=== PATIENT | female | born 1945 | race Caucasian/White ===

== ENCOUNTER 2024-05-23 19:55 | Inpatient (IN) | payer MEDICARE ==
[~2024-05-23] VITALS: Ht 165.1 cm; Wt 74.8 kg
[2024-05-23 20:30] VITALS: BP_SYST 131; PULSE 84; RESP 18; TEMP 101.1; O2SAT 96
[2024-05-23 20:58] LABS: BASOPHILS # (AUTO) 0.1 K/uL (0.0-0.2); BASOPHILS % (AUTO) 0.5 % (0.0-2.0); EOSINOPHILS # (AUTO) 0.1 K/uL (0.0-0.4); EOSINOPHILS % (AUTO) 0.4 % (0.0-4.0); HEMATOCRIT 41.9 % (36-48); HEMOGLOBIN 14.1 g/dL (12.0-16.0); LYMPHOCYTES % (AUTO) 5.7 % (20.5-51.5); MEAN CORPUSCULAR HEMOGLOBIN 32 pg (27-31); MEAN CORPUSCULAR HGB CONC 34 % (32-36); MEAN CORPUSCULAR VOLUME 94 fL (79.0-98.0); MONOCYTES # (AUTO) 1.1 K/uL (0.0-1.0); MONOCYTES % (AUTO) 5.7 % (1.7-9.3); NEUTROPHILS # (AUTO) 16.3 K/uL (1.8-7.7); NEUTROPHILS % (AUTO) 87.7 % (40.0-70.0); PLATELET COUNT (AUTO) 305 K/uL (130-430); RED BLOOD CELL COUNT(AUTO) 4.46 MIL/uL (4.2-6.2); RED CELL DISTRIBUTION WIDTH 12.7 % (9.0-15.0); WHITE BLOOD COUNT (AUTO) 18.5 K/uL (4.8-10.8)
[2024-05-23 21:32] LABS: ALANINE AMINOTRANSFERASE 27 U/L (12-78); ALBUMIN 4.4 g/dL (3.4-4.8); ANION GAP 13 (5-15); ASPARTATE AMINOTRANSFERASE 25 U/L (10-37); CALCIUM 9.9 mg/dL (8.4-11.0); CARBON DIOXIDE 24 mmol/L (23-29); CHLORIDE 102 mmol/L (98-107); CREATININE 1.12 mg/dL (0.55-1.30); GLUCOSE 119 mg/dL (74-106); LIPASE 17 U/L (16-77); POTASSIUM 4.6 mmol/L (3.5-5.1); SODIUM SERUM 139 mmol/L (136-145); TOTAL BILIRUBIN 0.8 mg/dL (0.0-1.0); TOTAL PROTEIN, SERUM 8.1 g/dL (6.4-8.3); UREA NITROGEN, BLOOD 16 mg/dL (8-21)
[2024-05-24] VITALS (8 sets, daily range): BP systolic 105–132; PULSE 84–94; RESP 16–20; TEMP 98.1–98.6; O2SAT 95–97
[2024-05-24] MEDS: NACL 0.9% 1,000 ML IV ONE (00:26)
[2024-05-24] MEDS ORDERED: CEFEPIME 2 GM/VIAL (MAXIPIME) ONE (01:24)
[2024-05-24] MEDS: CEFEPIME 2 GM in D5W 100 ML IV ONE (01:47)
[2024-05-24] MEDS ORDERED: ACETAMINOPHEN 325 MG TABLET PO PRN ×2 (02:15→07:45)
[2024-05-24] MEDS: MORPHINE 2 MG/ML INJ. SYRINGE IVP PRN ×2 (03:08→05:23)
[2024-05-24] MEDS ORDERED: SYN50 PO (03:54)
[2024-05-24] MEDS ORDERED: ATOR-449 PO (03:54)
[2024-05-24] MEDS ORDERED: PARNATE PO (03:54)
[2024-05-24 04:36] LABS: BILIRUBIN,URINE NEGATIVE (NEGATIVE); BLOOD, URINE 1+ (NEGATIVE); COLOR,URINE YELLOW (YELLOW); GLUCOSE,URINE NEGATIVE (NEGATIVE); KETONES,URINE NEGATIVE (NEGATIVE); LEUKOCYTE ESTERASE ,URINE NEGATIVE (NEGATIVE); NITRITE, URINE NEGATIVE (NEGATIVE); PROTEIN URINE NEGATIVE (NEGATIVE); UROBILINOGEN,URINE 0.2 (0.2-1.0)
[2024-05-24 04:57] LABS: CLARITY/URINE HAZY (CLEAR); WBC,URINE 0-3 /HPF (0-3)
[2024-05-24 04:58] LABS: BACTERIA,URINE RARE /HPF (None Seen)
[2024-05-24] MEDS: D5NS 1,000 ML IV ONE (05:10)
[2024-05-24] MEDS ORDERED: LORazepam 2 MG/ML VIAL IVP PRN (07:45)
[2024-05-24 08:20] LABS: BASOPHILS % (AUTO) 0.2 % (0.0-2.0); EOSINOPHILS % (AUTO) 0.1 % (0.0-4.0); HEMATOCRIT 37.5 % (36-48); HEMOGLOBIN 12.4 g/dL (12.0-16.0); LYMPHOCYTES # (AUTO) 1.2 K/uL (1.0-5.5); LYMPHOCYTES % (AUTO) 6.9 % (20.5-51.5); MEAN CORPUSCULAR HEMOGLOBIN 31 pg (27-31); MEAN CORPUSCULAR HGB CONC 33 % (32-36); MEAN CORPUSCULAR VOLUME 95 fL (79.0-98.0); MONOCYTES # (AUTO) 1.2 K/uL (0.0-1.0); MONOCYTES % (AUTO) 6.4 % (1.7-9.3); NEUTROPHILS # (AUTO) 15.5 K/uL (1.8-7.7); NEUTROPHILS % (AUTO) 86.4 % (40.0-70.0); PLATELET COUNT (AUTO) 235 K/uL (130-430); RED BLOOD CELL COUNT(AUTO) 3.97 MIL/uL (4.2-6.2); RED CELL DISTRIBUTION WIDTH 13.3 % (9.0-15.0)
[2024-05-24 08:27] LABS: ALANINE AMINOTRANSFERASE 20 U/L (12-78); ALBUMIN 3.3 g/dL (3.4-4.8); ANION GAP 11 (5-15); ASPARTATE AMINOTRANSFERASE 16 U/L (10-37); CALCIUM 8.4 mg/dL (8.4-11.0); CARBON DIOXIDE 23 mmol/L (23-29); CHLORIDE 104 mmol/L (98-107); GLUCOSE 106 mg/dL (74-106); POTASSIUM 3.7 mmol/L (3.5-5.1); SODIUM SERUM 138 mmol/L (136-145); TOTAL BILIRUBIN 0.8 mg/dL (0.0-1.0); TOTAL PROTEIN, SERUM 6.6 g/dL (6.4-8.3); UREA NITROGEN, BLOOD 13 mg/dL (8-21)
[2024-05-24] MEDS: PIPERACILLIN/TAZO 3.375 GM in D5W 50 ML IV ONE (09:00)
[2024-05-24] MEDS: ONDANSETRON HCL 4 MG/2 ML VIAL IVP PRN (09:25)
[2024-05-24] MEDS: BUPIVACAINE LIPOSOME/PF 266 MG/20 ML VIAL INFIL ONE (12:54)
[2024-05-24] MEDS ORDERED: LIDOCAINE MPF 2% 5mL VIAL INJ ONE (14:25)
[2024-05-24] MEDS ORDERED: ROCURONIUM BROMIDE 10 MG/ML (ZEMURON) ONE (14:25)
[2024-05-24] MEDS ORDERED: NS IRRIG SOLN 1000 ML IR ONE (14:25)
[2024-05-24] MEDS ORDERED: NS 1000 ML IV.SOLN IV ONE (14:25)
[2024-05-24] MEDS ORDERED: PROPOFOL 200MG/ 20ML VIAL (DIPRIVAN) IV ONE (14:25)
[2024-05-24] MEDS ORDERED: WATER FOR IRRIGATION,STERILE 1,000 ML IRRIG.SOLN IR ONE (14:25)
[2024-05-24] MEDS ORDERED: GLYCOPYRROLATE 0.2 MG/ML VIAL ONE (14:25)
[2024-05-24] MEDS ORDERED: SEVOFLURANE 15 MIN GAS INH ONE (14:25)
[2024-05-24] MEDS ORDERED: fentaNYL CITRATE/PF 100 MCG/2 ML AMP ONE (14:25)
[2024-05-24] MEDS: NACL 0.9% 1,000 ML IV SCH (17:00)
[2024-05-24] MEDS: ALBUMIN HUMAN 5% 250 ML IV ONE ×2 (17:43→18:13)
[2024-05-24] MEDS ORDERED: traZODone HCL 50 MG TABLET (DESYREL) PO PRN (21:30)
[2024-05-24] MEDS: PIPERACILLIN/TAZO 3.375 GM in D5W 50 ML IV SCH (21:48)
[2024-05-25] VITALS (9 sets, daily range): BP systolic 102–123; PULSE 79–89; RESP 18–20; TEMP 97.6–99; O2SAT 91–98
[2024-05-25] MEDS: LEVOTHYROXINE SODIUM 0.05 MG TABLET PO SCH (06:15)
[2024-05-25 06:42] LABS: BASOPHILS % (AUTO) 0.1 % (0.0-2.0); HEMATOCRIT 32.8 % (36-48); HEMOGLOBIN 10.8 g/dL (12.0-16.0); LYMPHOCYTES # (AUTO) 0.9 K/uL (1.0-5.5); MEAN CORPUSCULAR HEMOGLOBIN 32 pg (27-31); MEAN CORPUSCULAR HGB CONC 33 % (32-36); MEAN CORPUSCULAR VOLUME 96 fL (79.0-98.0); MONOCYTES # (AUTO) 1.1 K/uL (0.0-1.0); MONOCYTES % (AUTO) 6.3 % (1.7-9.3); NEUTROPHILS % (AUTO) 88.6 % (40.0-70.0); PLATELET COUNT (AUTO) 189 K/uL (130-430); RED BLOOD CELL COUNT(AUTO) 3.41 MIL/uL (4.2-6.2); RED CELL DISTRIBUTION WIDTH 13.5 % (9.0-15.0)
[2024-05-25 07:02] LABS: ALANINE AMINOTRANSFERASE 18 U/L (12-78); ALBUMIN 2.9 g/dL (3.4-4.8); ANION GAP 13 (5-15); ASPARTATE AMINOTRANSFERASE 19 U/L (10-37); CALCIUM 8.2 mg/dL (8.4-11.0); CARBON DIOXIDE 21 mmol/L (23-29); CHLORIDE 109 mmol/L (98-107); CREATININE 1.27 mg/dL (0.55-1.30); GLUCOSE 114 mg/dL (74-106); SODIUM SERUM 143 mmol/L (136-145); TOTAL PROTEIN, SERUM 6.1 g/dL (6.4-8.3); UREA NITROGEN, BLOOD 14 mg/dL (8-21)
[2024-05-25 07:53] LABS: TOTAL BILIRUBIN 1.8 mg/dL (0.0-1.0)
[2024-05-25] MEDS: HYDROcodone/ACETAMIN 5-325 MG TAB (NORCO/ VICODIN) PO PRN (08:59)
[2024-05-25] MEDS: ATORVASTATIN 10 MG TABLET PO SCH (08:59)
[2024-05-25] MEDS: IPRATROPIUM/ALBUTEROL SULFATE 3 ML AMPUL.NEB (DUONEB) ONE (14:07)
[2024-05-26] VITALS (28 sets, daily range): BP systolic 96–151; PULSE 79–183; RESP 15–26; TEMP 97.7–98.7; O2SAT 92–96
[2024-05-26] MEDS: IPRATROPIUM/ALBUTEROL SULFATE 3 ML AMPUL.NEB (DUONEB) INH PRN (03:25)
[2024-05-26] MEDS: dilTIAZem HCL IVP 5 MG/ML VIAL IVP ONE ×2 (04:42→05:22)
[2024-05-26 05:16] LABS: BASOPHILS % (AUTO) 0.1 % (0.0-2.0); EOSINOPHILS % (AUTO) 0.1 % (0.0-4.0); HEMATOCRIT 36.3 % (36-48); LYMPHOCYTES # (AUTO) 0.7 K/uL (1.0-5.5); LYMPHOCYTES % (AUTO) 3.7 % (20.5-51.5); MEAN CORPUSCULAR HEMOGLOBIN 31 pg (27-31); MEAN CORPUSCULAR HGB CONC 33 % (32-36); MEAN CORPUSCULAR VOLUME 94 fL (79.0-98.0); MONOCYTES # (AUTO) 0.8 K/uL (0.0-1.0); MONOCYTES % (AUTO) 4.4 % (1.7-9.3); NEUTROPHILS # (AUTO) 16.9 K/uL (1.8-7.7); NEUTROPHILS % (AUTO) 91.7 % (40.0-70.0); PLATELET COUNT (AUTO) 249 K/uL (130-430); RED BLOOD CELL COUNT(AUTO) 3.87 MIL/uL (4.2-6.2); RED CELL DISTRIBUTION WIDTH 13.5 % (9.0-15.0); WHITE BLOOD COUNT (AUTO) 18.5 K/uL (4.8-10.8)
[2024-05-26 05:26] LABS: ANION GAP 14 (5-15); CALCIUM 8.9 mg/dL (8.4-11.0); CARBON DIOXIDE 19 mmol/L (23-29); CHLORIDE 102 mmol/L (98-107); CREATININE 0.89 mg/dL (0.55-1.30); GLUCOSE 134 mg/dL (74-106); POTASSIUM 3.1 mmol/L (3.5-5.1); SODIUM SERUM 135 mmol/L (136-145); UREA NITROGEN, BLOOD 21 mg/dL (8-21)
[2024-05-26] MEDS: POTASSIUM CHLORIDE 20 MEQ TABLET.ER PO ONE (06:04)
[2024-05-26] MEDS: KCL 20 mEq in D5/0.45NS 1000mL 1,000 ML IV SCH (08:00)
[2024-05-26 08:08] LABS: ALLEN'S TEST POSITIVE (P)
[2024-05-26 08:11] LABS: ABG O2 SAT% ESTIMATE 92.4 % (94.0-98.0); BLOOD GAS BASE EXCESS -3.2 mmol/L (-2.0-3.0); BLOOD GAS HCO3 18.7 mmol/L (21.0-28.0); BLOOD GAS PCO2 25.7 mmHg (32.0-45.0); BLOOD GAS PO2 57.9 mmHg (83.0-108.0)
[2024-05-26] MEDS: metroNIDAZOLE 500 mg/NS 100 ML IV SCH (09:26)
[2024-05-26] MEDS: DIGOXIN 0.5 MG/2 ML AMP IVP ONE ×3 (09:27→21:05)
[2024-05-26] MEDS: ONDANSETRON HCL 4 MG/2 ML VIAL IVP PRN (10:20)
[2024-05-26] MEDS: PANTOPRAZOLE SODIUM 40 MG/VIAL (PROTONIX) IVP ONE (12:52)
[2024-05-26] MEDS: POTASSIUM CHLORIDE 30 MEQ in NS 250 ML IV ONE (14:00)
[2024-05-26] MEDS: AMIODARONE HCL 150 MG in D5W 100 ML IV ONE (15:00)
[2024-05-26] MEDS: AMIODARONE HCL 450 MG in D5W 241 ML IV SCH (15:12)
[2024-05-26] MEDS: POTASSIUM CHLORIDE 40 MEQ in NS 250 ML IV ONE (16:45)
[2024-05-27] VITALS (27 sets, daily range): BP systolic 116–163; PULSE 72–97; RESP 13–29; TEMP 97.9–98.6; O2SAT 92–97
[2024-05-27 06:29] LABS: INR 0.9 (0.8-1.2)
[2024-05-27 06:44] LABS: BASOPHILS % (AUTO) 0.2 % (0.0-2.0); EOSINOPHILS # (AUTO) 0.1 K/uL (0.0-0.4); EOSINOPHILS % (AUTO) 0.8 % (0.0-4.0); HEMATOCRIT 34.1 % (36-48); HEMOGLOBIN 11.2 g/dL (12.0-16.0); LYMPHOCYTES % (AUTO) 6.4 % (20.5-51.5); MEAN CORPUSCULAR HEMOGLOBIN 31 pg (27-31); MEAN CORPUSCULAR HGB CONC 33 % (32-36); MEAN CORPUSCULAR VOLUME 94 fL (79.0-98.0); MONOCYTES # (AUTO) 1.4 K/uL (0.0-1.0); MONOCYTES % (AUTO) 8.4 % (1.7-9.3); NEUTROPHILS # (AUTO) 13.5 K/uL (1.8-7.7); NEUTROPHILS % (AUTO) 84.2 % (40.0-70.0); PLATELET COUNT (AUTO) 299 K/uL (130-430); RED BLOOD CELL COUNT(AUTO) 3.62 MIL/uL (4.2-6.2); RED CELL DISTRIBUTION WIDTH 13.5 % (9.0-15.0); WHITE BLOOD COUNT (AUTO) 16.1 K/uL (4.8-10.8)
[2024-05-27 07:08] LABS: ALANINE AMINOTRANSFERASE 21 U/L (12-78); ALBUMIN 2.3 g/dL (3.4-4.8); ANION GAP 10 (5-15); ASPARTATE AMINOTRANSFERASE 18 U/L (10-37); CALCIUM 8.4 mg/dL (8.4-11.0); CARBON DIOXIDE 24 mmol/L (23-29); CHLORIDE 106 mmol/L (98-107); CREATININE 0.96 mg/dL (0.55-1.30); GLUCOSE 112 mg/dL (74-106); POTASSIUM 3.9 mmol/L (3.5-5.1); SODIUM SERUM 140 mmol/L (136-145); THYROID STIMULATING HORMONE 3.63 uIu/mL (0.34-4.82); TOTAL BILIRUBIN 0.9 mg/dL (0.0-1.0); TOTAL PROTEIN, SERUM 6.1 g/dL (6.4-8.3); UREA NITROGEN, BLOOD 17 mg/dL (8-21)
[2024-05-27] MEDS ORDERED: *TPN PER PHARMACY XX PRN (09:15)
[2024-05-27] MEDS: PANTOPRAZOLE SODIUM 40 MG/VIAL (PROTONIX) IVP SCH (10:03)
[2024-05-27] MEDS: SODIUM ACETATE IV SCH (20:12)
[2024-05-27] MEDS: TPN CENTRAL IV SCH (20:12)
[2024-05-27] MEDS: POTASSIUM CHLORIDE IV SCH (20:12)
[2024-05-27] MEDS: [UNRECOGNIZED DRUG - OTHER] IV SCH (20:12)
[2024-05-28] VITALS (19 sets, daily range): BP systolic 122–156; PULSE 68–82; RESP 13–21; TEMP 98.4–99.2; O2SAT 92–98
[2024-05-28 05:58] LABS: BASOPHILS % (AUTO) 0.2 % (0.0-2.0); EOSINOPHILS # (AUTO) 0.3 K/uL (0.0-0.4); EOSINOPHILS % (AUTO) 1.8 % (0.0-4.0); HEMATOCRIT 34.7 % (36-48); HEMOGLOBIN 11.4 g/dL (12.0-16.0); LYMPHOCYTES # (AUTO) 1.1 K/uL (1.0-5.5); LYMPHOCYTES % (AUTO) 6.2 % (20.5-51.5); MEAN CORPUSCULAR HEMOGLOBIN 31 pg (27-31); MEAN CORPUSCULAR HGB CONC 33 % (32-36); MEAN CORPUSCULAR VOLUME 94 fL (79.0-98.0); MONOCYTES # (AUTO) 1.7 K/uL (0.0-1.0); MONOCYTES % (AUTO) 9.4 % (1.7-9.3); NEUTROPHILS # (AUTO) 14.9 K/uL (1.8-7.7); NEUTROPHILS % (AUTO) 82.4 % (40.0-70.0); PLATELET COUNT (AUTO) 317 K/uL (130-430); RED BLOOD CELL COUNT(AUTO) 3.69 MIL/uL (4.2-6.2); RED CELL DISTRIBUTION WIDTH 13.2 % (9.0-15.0)
[2024-05-28 06:16] LABS: ALANINE AMINOTRANSFERASE 25 U/L (12-78); ALBUMIN 2.1 g/dL (3.4-4.8); ANION GAP 10 (5-15); ASPARTATE AMINOTRANSFERASE 28 U/L (10-37); CALCIUM 8.2 mg/dL (8.4-11.0); CARBON DIOXIDE 24 mmol/L (23-29); CHLORIDE 105 mmol/L (98-107); CREATININE 0.71 mg/dL (0.55-1.30); GLUCOSE 140 mg/dL (74-106); PHOSPHORUS 1.3 mg/dL (2.7-4.5); POTASSIUM 3.9 mmol/L (3.5-5.1); SODIUM SERUM 139 mmol/L (136-145); TOTAL BILIRUBIN 0.7 mg/dL (0.0-1.0); TOTAL PROTEIN, SERUM 5.7 g/dL (6.4-8.3); TRIGLYCERIDES 143 mg/dL (30-150); UREA NITROGEN, BLOOD 11 mg/dL (8-21)
[2024-05-28] MEDS: ATORVASTATIN 10 MG TABLET PO ONE (08:20)
[2024-05-28] MEDS: AMIODARONE HCL 150 MG in D5W 100 ML IV SCH (09:28)
[2024-05-28] MEDS: FLUCONAZOLE 200 mg/ NS 100 ML IV SCH (12:29)
[2024-05-28] MEDS: PIPERACILLIN/TAZO 4.5 GM in D5W 100 ML IV SCH (14:07)
[2024-05-28] MEDS ORDERED: [UNRECOGNIZED DRUG - OTHER] IV SCH ×2 (21:00)
[2024-05-28] MEDS ORDERED: SODIUM ACETATE IV SCH ×2 (21:00)
[2024-05-28] MEDS ORDERED: TPN CENTRAL IV SCH ×2 (21:00)
[2024-05-28] MEDS ORDERED: K PHOS IV SCH ×2 (21:00)
== END 2024-05-28 20:05 | disposition short-term general hospital (02) | DRG 853 ==
LOC: SED 19:55 → SMU 05-24 02:06 → STU 05-24 17:17 → SIC 05-26 06:34
PROVIDERS: ADMIT Internal Medicine; ATTEND Internal Medicine
PROC: 0W9G40Z Drainage of Peritoneal Cavity with Drainage Device, Percutaneous Endoscopic Approach (ICD-10-PCS; 2024-05-24)
PROC: 0D9J40Z Drainage of Appendix with Drainage Device, Percutaneous Endoscopic Approach (ICD-10-PCS; 2024-05-24)
PROC: 5A09357 Assistance with Respiratory Ventilation, Less than 24 Consecutive Hours, Continuous Positive Airway Pressure (ICD-10-PCS; 2024-05-24)
PROC: 5A09357 Assistance with Respiratory Ventilation, Less than 24 Consecutive Hours, Continuous Positive Airway Pressure (ICD-10-PCS; 2024-05-24)
PROC: 5A0945A Assistance with Respiratory Ventilation, 24-96 Consecutive Hours, High Flow/Velocity Cannula (ICD-10-PCS; 2024-05-24)
PROC: 02HV33Z Insertion of Infusion Device into Superior Vena Cava, Percutaneous Approach (ICD-10-PCS; principal; 2024-05-27)
PROC: B548ZZA Ultrasonography of Superior Vena Cava, Guidance (ICD-10-PCS; 2024-05-27)
DX: A41.9 Sepsis, unspecified organism (principal); K35.33 Acute appendicitis with perforation, localized peritonitis, and gangrene, with abscess; R65.21 Severe sepsis with septic shock; E44.1 Mild protein-calorie malnutrition; E87.1 Hypo-osmolality and hyponatremia; K56.7 Ileus, unspecified; F17.210 Nicotine dependence, cigarettes, uncomplicated; M19.09 Primary osteoarthritis, other specified site; I48.91 Unspecified atrial fibrillation; F32.A Depression, unspecified; E87.6 Hypokalemia; K59.00 Constipation, unspecified; E78.5 Hyperlipidemia, unspecified; Y83.8 Other surgical procedures as the cause of abnormal reaction of the patient, or of later complication, without mention of misadventure at the time of the procedure; Z88.2 Allergy status to sulfonamides; Z68.27 Body mass index [BMI] 27.0-27.9, adult; Z79.899 Other long term (current) drug therapy
CPT/HCPCS: 36415; 36600; 71045; 74018; 80048; 80053; 81000; 81001; 81015; 82803; 83690; 83735; 84100; 84439; 84443; 84478; 84484; 85025; 85610; 85730; 87040; 87070; 87081; 87205; 93005; 94640; 94660; 94760; 97116-GP; 97530-GP; 99285; C1727; C9290; G0378; J0282; J0612; J0692; J1160; J1450; J1956; J2001; J2060; J2270; J2405; J2470; J2543; J2704; J3010; J3475; J3480; J3490; J7030; J7040; J7042; J7050; J7060; P9041